=== PATIENT | female | born 1990 | race Caucasian/White ===

== ENCOUNTER 2017-11-23 11:14 | Emergency (ER) | payer SELFPAY ==
[2017-11-23 11:51] LABS: URINE HCG POC HCG NEGATIVE (Negative)
[2017-11-23 12:28] LABS: BILIRUBIN,URINE NEGATIVE (NEG); CLARITY,URINE TURBID; COLOR,URINE AMBER; GLUCOSE,URINE NEGATIVE (NEG); NITRITE,URINE NEGATIVE (NEG); PROTEIN,URINE 100 mg/dL (NEG-TRACE); UROBILINOGEN,URINE 0.2 mg/dL (0.2 mg/dL)
[2017-11-23 12:40] LABS: BACTERIA,URINE FEW /HPF (0-FEW); SQUAMOUS EPITHELIAL CELL,UR OCC /LPF; WBC,URINE TNTC /HPF (0-4)
== END 2017-11-23 13:00 | disposition home or self-care (01) ==
LOC: ER 11:14
DX: N39.0 Urinary tract infection, site not specified (principal); F41.9 Anxiety disorder, unspecified; F17.210 Nicotine dependence, cigarettes, uncomplicated; Z98.51 Tubal ligation status; Z88.1 Allergy status to other antibiotic agents
CPT/HCPCS: 81001; 81025; 87086; 99284

== ENCOUNTER 2018-07-31 10:28 | Emergency (ER) | payer SELFPAY ==
[~2018-07-31] VITALS: Ht 160 cm; Wt 77.1 kg
[~2018-07-31 10:28] MED LIST: SULF1TAB24 PO
[2018-07-31 10:49] VITALS: BP 132/84
--- NOTE | 2018-07-31 11:11 | PHYS DOC ---
Past Medical History Past Medical History: Anxiety, UTI Past Surgical History: Tubal ligation Alcohol Use: None Drug Use: None Adult General Chief Complaint Chief Complaint: URINARY FREQUENCY HPI HPI Patient is a 28 year old female who presents with states to weeks ago she had a double kidney infection was seen at a urgent care and was given a shot of medication and she is currently on amoxicillin. Patient states she is not any better and she now has right flank pain, nausea and chills with blood in her urine. Patient states she is on her menses. Patient complains of lower abdominal cramping also. Patient rates her pain 8 out of 10. Review of Systems Review of Systems Constitutional: fever or chills [] Eyes: Denies change in visual acuity, redness, or eye pain [] HENT: Denies nasal congestion or sore throat [] Respiratory: Denies cough or shortness of breath [] Cardiovascular: No additional information not addressed in HPI [] GI: abdominal pain, nausea, denies vomiting, bloody stools or diarrhea [] : dysuria or hematuria [] Musculoskeletal: Denies back pain or joint pain [] Integument: Denies rash or skin lesions [] Neurologic: Denies headache, focal weakness or sensory changes [] All other systems were reviewed and found to be within normal limits, except as documented in this note. Current Medications Current Medications Current Medications Medications (Trade) Dose Ordered Sig/Ashu Start Time Stop Time Status Last Admin Dose Admin Sodium Chloride 1,000 ml @ 1,000 mls/hr 1X ONCE 07/31/18 11:00 07/31/18 11:59 DC 07/31/18 11:36 1,000 MLS/HR Allergies Allergies Allergies Coded Allergies Type Severity Reaction Last Updated Verified ciprofloxacin Allergy Severe ANAPHYLAXIS 11/23/17 Yes Physical Exam Physical Exam Constitutional: Well developed, well nourished, no acute distress, non-toxic appearance. [] HENT: Normocephalic, atraumatic, bilateral external ears normal, oropharynx moist, no oral exudates, nose normal. [] Eyes: PERRLA, EOMI, conjunctiva normal, no discharge. [] Neck: Normal range of motion, no tenderness, supple, no stridor. [] Cardiovascular:Heart rate regular rhythm, no murmur [] Lungs & Thorax: Bilateral breath sounds clear to auscultation [] Abdomen: Bowel sounds normal, soft, mid lower abdomen tenderness, no masses, no pulsatile masses. [] Skin: Warm, dry, no erythema, no rash. [] Back: No tenderness, no CVA tenderness. [] Extremities: No tenderness, no cyanosis, no clubbing, ROM intact, no edema. [] Neurologic: Alert and oriented X 3, normal motor function, normal sensory function, no focal deficits noted. [] Psychologic: Affect normal, judgement normal, mood normal. [] Current Patient Data Vital Signs Vital Signs Date Time Temp Pulse Resp B/P (MAP) Pulse Ox O2 Delivery O2 Flow Rate FiO2 07/31/18 10:49 98.0 72 16 132/84 (100) 99 Room Air 98.0 Lab Values Laboratory Tests Test 07/31/18 10:55 07/31/18 11:03 07/31/18 11:30 Urine Collection Type Unknown Urine Color Yellow Urine Clarity Clear Urine pH 6.5 Urine Specific [place] 1.020 Urine Protein Negative mg/dL (NEG-TRACE) Urine Glucose (UA) Negative mg/dL (NEG) Urine Ketones (Stick) Negative mg/dL (NEG) Urine Blood Small (NEG) Urine Nitrite Negative (NEG) Urine Bilirubin Negative (NEG) Urine Urobilinogen Dipstick 0.2 mg/dL (0.2 mg/dL) Urine Leukocyte Esterase Negative (NEG) Urine RBC 1-2 /HPF (0-2) Urine WBC Occ /HPF (0-4) Urine Squamous Epithelial Cells Few /LPF Urine Bacteria Few /HPF (0-FEW) Urine Mucus Slight /LPF POC Urine HCG, Qualitative Hcg negative (Negative) White Blood Count 5.3 x10^3/uL (4.0-11.0) Red Blood Count 4.53 x10^6/uL (3.50-5.40) Hemoglobin 13.2 g/dL (12.0-15.5) Hematocrit 40.6 % (36.0-47.0) Mean Corpuscular Volume 90 fL (79-100) Mean Corpuscular Hemoglobin 29 pg (25-35) Mean Corpuscular Hemoglobin Concent 33 g/dL (31-37) Red Cell Distribution Width 13.2 % (11.5-14.5) Platelet Count 199 x10^3/uL (140-400) Neutrophils (%) (Auto) 64 % (31-73) Lymphocytes (%) (Auto) 26 % (24-48) Monocytes (%) (Auto) 7 % (0-9) Eosinophils (%) (Auto) 3 % (0-3) Basophils (%) (Auto) 0 % (0-3) Neutrophils # (Auto) 3.4 x10^3uL (1.8-7.7) Lymphocytes # (Auto) 1.4 x10^3/uL (1.0-4.8) Monocytes # (Auto) 0.4 x10^3/uL (0.0-1.1) Eosinophils # (Auto) 0.2 x10^3/uL (0.0-0.7) Basophils # (Auto) 0.0 x10^3/uL (0.0-0.2) Sodium Level 141 mmol/L (136-145) Potassium Level 3.9 mmol/L (3.5-5.1) Chloride Level 104 mmol/L (98-107) Carbon Dioxide Level 26 mmol/L (21-32) Anion Gap 11 (6-14) Blood Urea Nitrogen 14 mg/dL (7-20) Creatinine 0.6 mg/dL (0.6-1.0) Estimated GFR (Cockcroft-Gault) 119.9 Glucose Level 95 mg/dL (70-99) Calcium Level 8.8 mg/dL (8.5-10.1) Laboratory Tests 07/31/18 11:30 Laboratory Tests 07/31/18 11:30 EKG EKG [] Radiology/Procedures Radiology/Procedures [] Impressions: [facility] [address] [place] [address] IMAGING REPORT Signed PATIENT: MARTIR BALES ACCOUNT: [id number] : 1990 LOCATION: ER AGE: 28 SEX: F EXAM STATUS: REG ER ORD. PHYSICIAN: AMANDA REA APRN REASON: flank pain PROCEDURE: CT ABDOMEN PELVIS WO CONTRAST CT study of the abdomen and pelvis without contrast Clinical indications: Right flank pain. Recent kidney infection. TECHNIQUE: Noncontrast helical CT scanning of the abdomen and pelvis was performed. Without contrast, the sensitivity to detect organ pathology and GI tract pathology is decreased. PQRS compliance Statement One or more of the following individualized dose reduction techniques were utilized for this study: 1. Automated exposure control 2. Adjustment of the mA and/or kV according to patient size 3. Use of iterative reconstruction technique FINDINGS: Liver and spleen and pancreas are unremarkable on this noncontrast study. The gallbladder is normal and no extra hepatic biliary ductal dilatation is seen. No adrenal mass is evident. No hydronephrosis or hydroureter or urinary tract stone is evident. No renal mass is seen on either side on this noncontrast study. Urinary bladder wall is smooth. Urinary bladder is not abnormally distended. No uterine mass is evident. No dominant ovarian cyst or mass is seen. No focal aneurysmal dilatation of the abdominal aorta is seen. No enlarged abdominal or pelvic lymphadenopathy is evident. There is wall thickening of distal ascending colon and hepatic flexure and the transverse colon. No pericolonic inflammatory change is seen. No obstructive bowel pattern is evident. No free air or free fluid or mesenteric edema is seen. No lung base consolidation is evident. No lytic process is seen. IMPRESSION: There is wall thickening of the distal ascending colon and hepatic flexure and transverse colon. This may be due to incomplete distention but could be seen with colitis if there are clinical findings of such. The terminal ileum is difficult to evaluate without GI contrast material. The appendix is not visualized but there are no secondary CT findings of appendicitis. No urinary tract stone or hydronephrosis or hydroureter. Electronically signed by: Scooter Thomas MD (07/31/2018 12:04 PM) [facility] DICTATED and SIGNED BY: SCOOTER THOMAS MD DATE: 07/31/18 1204 Course & Med Decision Making Course & Med Decision Making Patient is a 28 year old female who presents with states to weeks ago she had a double kidney infection was seen at a urgent care and was given a shot of medication and she is currently on amoxicillin. Patient states she is not any better and she now has right flank pain, nausea and chills with blood in her urine. Patient states she is on her menses. Patient complains of lower abdominal cramping also. Patient rates her pain 8 out of 10. Alert and oriented. Speaks in full clear sentences. Vital signs within normal limits. Skin pink warm and dry. Ambulatory with steady gait. Mucous membranes moist. Patient states she's been drinking plenty of water and cranberry juice. Patient is eating without complication. Patient states today she began feeling dizzy. Patient states that it does burn with urination and she does have urinary frequency. Abdomen is soft but tender to mid lower abdomen. Lungs are clear to auscultation all lobes. No extremity swelling. CVA tenderness. Patient denies any STD concerns abnormal vaginal discharge. Blood work is unremarkable. Urinalysis shows no signs of infection. CT abdomen pelvis shows There is wall thickening of the distal ascending colon and hepatic flexure and transverse colon. This may be due to incomplete distention but could be seen with colitis if there are clinical findings of such. The terminal ileum is difficult to evaluate without GI contrast material. The appendix is not visualized but there are no secondary CT findings of appendicitis. No urinary tract stone or hydronephrosis or hydroureter. Patient is discharged in follow up with her primary care provider. Patient is to continue drinking plenty of fluids. Dragon Disclaimer Dragon Disclaimer This electronic medical record was generated, in whole or in part, using a voice recognition dictation system. Departure Departure Impression: Primary Impression: Flank pain Disposition: HOME, SELF-CARE Condition: STABLE Referrals: NO PCP (PCP) Patient Instructions: Abdominal Pain, Flank Pain Additional Instructions: Follow-up her primary care provider. Continue drinking plenty of fluids. Continue taking the antibiotics you have been taking. Scripts Ibuprofen (IBUPROFEN) 600 Mg Tablet 600 MG PO PRN Q6HRS PRN for INFLAMMATION, #15 TAB Prov: AMANDA REA COPY CHASER 07/31/18 Ondansetron (ONDANSETRON ODT) 4 Mg Tab.rapdis 1 TAB PO PRN Q6-8HRS, #16 TAB Prov: AMANDA REA COPY CHASER 07/31/18 AMANDA REA COPY CHASER Jul 31, 2018 11:11
[2018-07-31 11:29] LABS: BILIRUBIN,URINE NEGATIVE (NEG); CLARITY,URINE CLEAR; COLOR,URINE YELLOW; NITRITE,URINE NEGATIVE (NEG); PH,URINE 6.5; PROTEIN,URINE NEGATIVE (NEG-TRACE); UROBILINOGEN,URINE 0.2 mg/dL (0.2 mg/dL)
[2018-07-31 11:36] LABS: BACTERIA,URINE FEW /HPF (0-FEW); SQUAMOUS EPITHELIAL CELL,UR FEW /LPF; WBC,URINE OCC /HPF (0-4)
[2018-07-31] MEDS: IV NORMAL SALINE 1000ML BAG 1,000 ML IV ONE (11:36)
[2018-07-31 11:46] LABS: BASO % 0 % (0-3); EOS # 0.2 x10^3/uL (0.0-0.7); EOS % 3 % (0-3); HEMATOCRIT 40.6 % (36.0-47.0); HEMOGLOBIN 13.2 g/dL (12.0-15.5); LYMPH # 1.4 x10^3/uL (1.0-4.8); LYMPH % 26 % (24-48); MEAN CORPUSCULAR HEMOGLOBIN 29 pg (25-35); MEAN CORPUSCULAR HGB CONC 33 g/dL (31-37); MEAN CORPUSCULAR VOLUME 90 fL (79-100); MONO # 0.4 x10^3/uL (0.0-1.1); MONO % 7 % (0-9); NEUT # 3.4 x10^3uL (1.8-7.7); NEUT % 64 % (31-73); PLATELET COUNT 199 x10^3/uL (140-400); RED BLOOD COUNT 4.53 x10^6/uL (3.50-5.40); RED CELL DISTRIBUTION WIDTH 13.2 % (11.5-14.5); WHITE BLOOD COUNT 5.3 x10^3/uL (4.0-11.0)
--- NOTE | 2018-07-31 12:07 | RAD ---
CT study of the abdomen and pelvis without contrast Clinical indications: Right flank pain. Recent kidney infection. TECHNIQUE: Noncontrast helical CT scanning of the abdomen and pelvis was performed. Without contrast, the sensitivity to detect organ pathology and GI tract pathology is decreased. PQRS compliance Statement One or more of the following individualized dose reduction techniques were utilized for this study: 1. Automated exposure control 2. Adjustment of the mA and/or kV according to patient size 3. Use of iterative reconstruction technique FINDINGS: Liver and spleen and pancreas are unremarkable on this noncontrast study. The gallbladder is normal and no extra hepatic biliary ductal dilatation is seen. No adrenal mass is evident. No hydronephrosis or hydroureter or urinary tract stone is evident. No renal mass is seen on either side on this noncontrast study. Urinary bladder wall is smooth. Urinary bladder is not abnormally distended. No uterine mass is evident. No dominant ovarian cyst or mass is seen. No focal aneurysmal dilatation of the abdominal aorta is seen. No enlarged abdominal or pelvic lymphadenopathy is evident. There is wall thickening of distal ascending colon and hepatic flexure and the transverse colon. No pericolonic inflammatory change is seen. No obstructive bowel pattern is evident. No free air or free fluid or mesenteric edema is seen. No lung base consolidation is evident. No lytic process is seen. IMPRESSION: There is wall thickening of the distal ascending colon and hepatic flexure and transverse colon. This may be due to incomplete distention but could be seen with colitis if there are clinical findings of such. The terminal ileum is difficult to evaluate without GI contrast material. The appendix is not visualized but there are no secondary CT findings of appendicitis. No urinary tract stone or hydronephrosis or hydroureter. Electronically signed by: Ronaldo Thomas MD (07/31/2018 12:04 PM) [place] [id number]
[2018-07-31 12:08] LABS: CALCIUM 8.8 mg/dL (8.5-10.1); CREATININE 0.6 mg/dL (0.6-1.0); GFR 119.9; POTASSIUM 3.9 mmol/L (3.5-5.1)
[2018-07-31] MEDS ORDERED: ONDA4TAB12 PO (12:53)
[2018-07-31] MEDS ORDERED: IBUP-1007 PO (12:53)
== END 2018-07-31 13:05 | disposition home or self-care (01) ==
LOC: ER 10:28
DX: R10.30 Lower abdominal pain, unspecified (principal); R11.0 Nausea; R31.9 Hematuria, unspecified; R30.0 Dysuria; Z98.51 Tubal ligation status; F41.9 Anxiety disorder, unspecified; Z88.1 Allergy status to other antibiotic agents
CPT/HCPCS: 36415; 74176; 80048; 81001; 81025; 85025; 99284; J7030; 99283

== ENCOUNTER 2018-12-25 23:55 | Emergency (ER) | payer SELFPAY ==
[~2018-12-25] VITALS: Ht 160 cm; Wt 71.7 kg
[~2018-12-25 23:55] MED LIST changes: +IBUP-1007 PO; +ONDA4TAB12 PO
[2018-12-26 00:13] LABS: BILIRUBIN,URINE NEGATIVE (NEG); CLARITY,URINE CLOUDY; COLOR,URINE YELLOW; NITRITE,URINE NEGATIVE (NEG); PH,URINE 6.5; PROTEIN,URINE NEGATIVE (NEG-TRACE); UROBILINOGEN,URINE 0.2 mg/dL (0.2 mg/dL)
[2018-12-26 00:24] LABS: BACTERIA,URINE 0 /HPF (0-FEW); SQUAMOUS EPITHELIAL CELL,UR FEW /LPF; WBC,URINE 20-40 /HPF (0-4)
[2018-12-26 00:26] VITALS: BP 126/77
[2018-12-26] MEDS ORDERED: PHEN-318 PO (00:33)
[2018-12-26] MEDS ORDERED: SULF1TAB24 PO (00:33)
--- NOTE | 2018-12-26 00:33 | PHYS DOC ---
Past Medical History Past Medical History: Anxiety, UTI Past Surgical History: Tubal ligation Alcohol Use: None Drug Use: None Adult General Chief Complaint Chief Complaint: PAIN ON URINATION HPI HPI Patient is a 28 year old female with history of recurrent urinary tract infections presents with urinary frequency urgency dysuria, and right flank pain starting 2 days ago. She denies fever chills nausea vomiting and sweats. Last menstrual period was approximately 2 weeks ago. Previous tubal ligation. No other acute symptoms or complaints. [] Review of Systems Review of Systems Review symptoms as per history of present illness. All other review symptoms are negative. All other systems were reviewed and found to be within normal limits, except as documented in this note. Allergies Allergies Allergies Coded Allergies Type Severity Reaction Last Updated Verified ciprofloxacin Allergy Severe ANAPHYLAXIS 11/23/17 Yes Physical Exam Physical Exam Constitutional: Well developed, well nourished, no acute distress, non-toxic appearance. [] HENT: Normocephalic, atraumatic, bilateral external ears normal, oropharynx moist,nose normal. [] Eyes: PERRLA, EOMI, conjunctiva normal, no discharge. [] Neck: Normal range of motion, no tenderness, supple. [] Cardiovascular:Heart rate regular rhythm, no murmur [] Lungs & Thorax: Bilateral breath sounds clear to auscultation [] Abdomen: Bowel sounds normal, soft, suprapubic pain/tenderness. [] Skin: Warm, dry, no erythema, no rash. [] Back: No tenderness, no CVA tenderness. [] Extremities: No tenderness, no cyanosis, no clubbing, ROM intact, no edema. [] Neurologic: Alert and oriented X 3, normal motor function, normal sensory function, no focal deficits noted. [] Psychologic: Affect normal, judgement normal, mood normal. [] Current Patient Data Lab Values Laboratory Tests Test 12/25/18 23:59 Urine Collection Type Unknown Urine Color Yellow Urine Clarity Cloudy Urine pH 6.5 Urine Specific [place] 1.020 Urine Protein Negative mg/dL (NEG-TRACE) Urine Glucose (UA) Negative mg/dL (NEG) Urine Ketones (Stick) Negative mg/dL (NEG) Urine Blood Trace (NEG) Urine Nitrite Negative (NEG) Urine Bilirubin Negative (NEG) Urine Urobilinogen Dipstick 0.2 mg/dL (0.2 mg/dL) Urine Leukocyte Esterase Large (NEG) Urine RBC 1-2 /HPF (0-2) Urine WBC 20-40 /HPF (0-4) Urine Squamous Epithelial Cells Few /LPF Urine Bacteria 0 /HPF (0-FEW) Urine Mucus Slight /LPF EKG EKG [] Radiology/Procedures Radiology/Procedures [] Course & Med Decision Making Course & Med Decision Making Pertinent Labs and Imaging studies reviewed. (See chart for details) [Antibiotics and pain medications prescribed. Recommend ECP follow-up. Return precautions reviewed.] Dragon Disclaimer Amandaon Disclaimer This electronic medical record was generated, in whole or in part, using a voice recognition dictation system. Departure Departure Impression: Primary Impression: Flank pain Additional Impression: Urinary tract infection Disposition: HOME, SELF-CARE Condition: IMPROVED Referrals: NO PCP (PCP) Patient Instructions: Urinary Tract Infection, Child Additional Instructions: Please increase fluids and take medications as directed. Local PCP in 3-5 days for repeat evaluation. Return to the ED if new or worsening symptoms Scripts Phenazopyridine Hcl (PYRIDIUM) 200 Mg Tablet 200 MG PO TID, #6 TAB Prov: VANDANA RAYMOND DO 12/26/18 Sulfamethoxazole/Trimethoprim (BACTRIM DS TABLET) 1 Each Tablet 1 TAB PO BID, #14 TAB Prov: VANDANA RAYMOND DO 12/26/18 Problem Qualifiers VANDANA RAYMOND DO Dec 26, 2018 00:33
[2018-12-26] MEDS ORDERED: SMZ/TMP 800/160MG TABLET. PO ONE (01:00)
[2018-12-26] MEDS ORDERED: PHENAZOPYRIDINE 200 MG TABLET. PO ONE (01:00)
== END 2018-12-26 00:50 | disposition home or self-care (01) ==
LOC: ER 23:55
DX: N39.0 Urinary tract infection, site not specified (principal); Z98.51 Tubal ligation status; Z88.1 Allergy status to other antibiotic agents
CPT/HCPCS: 81001; 81025; 99283

== ENCOUNTER 2020-01-27 20:35 | Emergency (ER) | payer SELFPAY ==
[~2020-01-27] VITALS: Ht 160 cm; Wt 72.9 kg
[~2020-01-27 20:35] MED LIST changes: +PHEN-318 PO
[2020-01-27 20:50] VITALS: BP 125/70
--- NOTE | 2020-01-27 21:18 | PHYS DOC ---
Past Medical History Past Medical History: Anxiety, Depression, UTI Past Surgical History: Tubal ligation Smoking Status: Current Every Day Smoker Alcohol Use: None Drug Use: None General Adult EDM: Chief Complaint: TEST HPI: HPI: Patient is a 29 year old female, accompanied by her mother, who presents to the emergency department with concerns of a positive home test at home. Patient reports that she took 3 tests at home 2 of them were negative but 1 was positive. Patient states that she had her tubes removed over 4 years ago. She also states that her menstrual cycle is currently 8 days late and that her breasts have been tender. Has any abdominal pain, nausea, vomiting, diarrhea, fever, cough, or other complaints. She currently denies any pain. Review of Systems: Review of Systems: Complete ROS is negative unless otherwise stated in the HPI. Heart Score: Risk Factors: Risk Factors: DM, Current or recent (<one month) smoker, HTN, HLP, family history of CAD, obesity. Risk Scores: Score 0 - 3: 2.5% MACE over next 6 weeks - Discharge Home Score 4 - 6: 20.3% MACE over next 6 weeks - Admit for Clinical Observation Score 7 - 10: 72.7% MACE over next 6 weeks - Early Invasive Strategies Allergies: Allergies: Allergies Coded Allergies Type Severity Reaction Last Updated Verified ciprofloxacin Allergy Severe ANAPHYLAXIS 11/23/17 Yes Physical Exam: PE: Constitutional: Well developed, well nourished, no acute distress, non-toxic appearance. [] HENT: Normocephalic, atraumatic, bilateral external ears normal, nose normal. [] Eyes: PERRLA, EOMI, conjunctiva normal, no discharge. [] Neck: Normal range of motion, no stridor. [] Cardiovascular:Heart rate regular rhythm Lungs & Thorax: Respirations even and unlabored, no retractions, no respiratory distress Abdomen: soft, no tenderness Skin: Warm, dry, no erythema, no rash. [] Extremities: No cyanosis, ROM intact, no edema. [] Neurologic: Alert and oriented X 3, no focal deficits noted. [] Psychologic: Affect normal, judgement normal, mood normal. [] Current Patient Data: Labs: Laboratory Tests Test 01/27/20 20:51 POC Urine HCG, Qualitative Hcg negative (Negative) EKG: EKG: [] Radiology/Procedures: Radiology/Procedures: [] Course & Med Decision Making: Course & Med Decision Making Pertinent Labs and Imaging studies reviewed. (See chart for details) [] Dragon Disclaimer: Dragon Disclaimer: This electronic medical record was generated, in whole or in part, using a voice recognition dictation system. Departure Departure Impression: Primary Impression: Negative test Disposition: HOME, SELF-CARE Condition: STABLE Referrals: ARACELI KEYS MD (PCP) Patient Instructions: Tests Additional Instructions: Your test today was negative, most likely the test you took at home w as a false positive, especially because you had both of your fallopian tubes surgically removed. Follow-up with your primary care doctor symptoms persist return to the emergency room if symptoms worsen. Justicifation of Admission Dx: Justifications for Admission: Justification of Admission Dx: N/A CECIL SAXENA APRN Jan 27, 2020 21:18
== END 2020-01-27 21:25 | disposition home or self-care (01) ==
LOC: ER 20:35
DX: N92.6 Irregular menstruation, unspecified (principal); F41.9 Anxiety disorder, unspecified; F32.9 Major depressive disorder, single episode, unspecified; F17.200 Nicotine dependence, unspecified, uncomplicated; Z98.51 Tubal ligation status; Z88.1 Allergy status to other antibiotic agents
CPT/HCPCS: 81025; 99282